=== PATIENT | male | born 1990 | race Caucasian/White ===

== ENCOUNTER 2018-11-08 17:59 | Observation (INO) | payer OTHER ==
[2018-11-08] MEDS ORDERED: 0.9 % SODIUM CHLORIDE 1,000 ML IV ONE ×3 (18:16→19:28)
[2018-11-08 18:50] LABS: BASOPHILS % 0.5 % (0.0-1.5); NEUTROPHILS # 8.4 # k/uL (1.4-7.7)
[2018-11-08 19:09] LABS: eGFR (Non-African) > 60
[2018-11-08] MEDS ORDERED: POTASSIUM CHLORIDE 20 MEQ TABLET.ER PO ONE (19:20)
[2018-11-08] MEDS ORDERED: POTASSIUM CHLORIDE 20 MEQ/NS 1,000 ML IV SCH (20:00)
[2018-11-08 20:37] VITALS: BMI 26.6
[2018-11-08] MEDS ORDERED: POTASSIUM CHLORIDE 20 MEQ/NS 1,000 ML IV ONE (20:54)
--- NOTE | 2018-11-08 21:31 | History and Physical Report ---
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 Has been outside training in the heat. Has been trying to drink a lot of fluids. Yesterday was stenuous, nonstop for 12-14 hours. This evening while travel started to have some muscle aches and cramps, started to have some tremors to his hand, felt like his skin was crawling. Urine has been yellow color, no blood noted. Patient states that he was not able to keep up with the fluids and sweating yesterday. - Past Surgical History Past Surgical History: Other (ORIF of of right ankle fracture) - Past Family History Mother Family History: Other (good health) Father Family History: Other (good health) - Past Social History Smoke: No Alcohol: Rare Drugs: None Lives: Alone - Health Maintenance Health Maintenance: Tetanus Influenza Vaccine: Current for this Influenza Season Pneumonia Vaccine: No Resuscitation Status: Resusciation Status Resuscitation Status Full Code - Unable to Obtain History Unable to Obtain: Yes Review of Systems - Review of Systems Constitutional: Chills, Weakness. negative: Fever Eyes: negative: pain, vision change ENT: negative: Ear Pain, Ear Discharge, Nose Pain, Nose Discharge, Nose Conges tion, Mouth Pain, Throat Swelling Respiratory: negative: Cough, Dry, Shortness of Breath, Hemoptysis, SOB with Excertion, Pleuritic Pain, Sputum, Wheezing Cardiovascular: Palpitations. negative: Chest Pain, Orthopnea, Paroxysmal Noc. Dyspnea, Edema, Light Headedness Gastrointestinal: negative: Nausea, Vomiting, Abdominal Pain, Diarrhea, Constipation, Melena, Hematochezia Genitourinary: negative: Dysuria, Frequency, Incontinence, Hematuria Musculoskeletal: Arm Pain, Back Pain, Hand Pain, Leg Pain. negative: Neck Pain, Shoulder Pain Skin: negative: Rash Neurological: Weakness. negative: Numbness, Incoordination, Change in Speech, Confusion, Seizures - Medications/Allergies Allergies/Adverse Reactions: Allergies Allergy/AdvReac Type Severity Reaction Status Date / Time No Known Allergies Allergy Verified 11/08/18 18:56 Home Medications: Home Medications NK 11/08/18 Current Inpatient Medications: Current Inpatient Medications Potassium Chloride/Sodium Chloride (Kcl 20 Meq/Ns 1000 Ml) 1,000 mls @ 250 mls/hr IV Q8H [facility] Last Admin: 11/08/18 21:18 Dose: 250 mls/hr Exam - Exam Vital Signs: Vital Signs (72 hours) 11/08/18 11/08/18 11/08/18 18:00 18:16 18:17 Temperature 37.2 F L 97.6 F 97.6 F Pulse Rate [ 61 72 100 H Pulse ox] Respiratory 16 18 19 Rate Blood Pressure 93/46 128/82 114/78 [Left Arm] O2 Sat by Pulse 99 98 98 Oximetry 11/08/18 11/08/18 19:39 19:54 Temperature 98.4 F Pulse Rate [ 69 72 Pulse ox] Respiratory 20 18 Rate Blood Pressure 145/98 128/82 [Left Arm] O2 Sat by Pulse 100 98 Oximetry General: Alert, Oriented to Person, Oriented to Place, Oriented to Time, Cooperative HEENT: Atraumatic, PERRLA, EOMI, Mouth Mucous membr. moist/[place], Nose Mucous membr. moist/[place] Neck: Normal Range of Motion Carotids: WNL Thyroid: WNL Lungs: Clear to auscultation, Normal air movement, Speaks full Sentences Cardiovascular: Regular rate, Normal S1, Normal S2, No murmurs Abdomen: Normal bowel sounds, Soft, No tenderness, No hepatospenomegaly, No masses Integumentary: Normal, [place], Warm, Dry Extremities: No clubbing, No cyanosis, No edema, Normal pulses, No tenderness/swelling Neurological: Normal gait, Normal speech, Strength Equal Bilat, Normal tone, Sensation intact, Cranial nerves 3-12 NL, Reflexes 2+ Psych/Mental Status: Mental status NL, Mood NL, Appropriate Affect, Intact Judgment - Laboratory Results Laboratory Results: Laboratory Results 11/08/18 11/08/18 11/08/18 18:16 18:16 18:16 WBC 11.30 RBC 4.34 Hgb 14.6 Hct 41.7 MCV 96.0 MCH 33.5 MCHC 34.9 RDW Pending Plt Count 237 Neut % (Auto) 73.6 Lymph % (Auto) 19.5 [place] % (Auto) 4.5 Eos % (Auto) 1.9 Baso % (Auto) 0.5 Neut # (Auto) 8.4 H Lymph # (Auto) 2.2 [place] # (Auto) 0.5 Eos # (Auto) 0.2 Baso # (Auto) 0.1 Sodium 142 Potassium 3.2 L Chloride 108 H Carbon Dioxide 23 BUN 18 Creatinine 1.39 H Estimated Creat Clear 90 Est GFR ( Amer) > 60 Est GFR (Non-Af Amer) > 60 Glucose 108 H Calcium 9.5 Total Bilirubin 1.7 H AST 84 H ALT 49 Alkaline Phosphatase 63 Creatine Kinase 2494 H CK-MB (CK-2) 4.2 Troponin I < 0.012 L Total Protein 7.4 Albumin 4.6 Assessment/Plan - Assessment/Plan (1) Exertional rhabdomyolysis Status: Acute Current Visit: Yes Assessment: Monitor renal function, IV fluids. (2) Dehydration Status: Acute Current Visit: Yes Assessment: IV fluids and will recheck labs in AM (3) Hypokalemia Status: Acute Current Visit: Yes Assessment: supplemental potassium VTE Assessment - RISK FACTOR SCORE VTE RISK FACTOR SCORES: OTHER (no risk factors) - RISK VTE LOW RISK: SCORE OF 1 OR LESS (RISK PROXIMAL DVT 0.4%) NO PROPHYLAXIS NEEDED
[2018-11-08] MEDS ORDERED: 0.9 % SODIUM CHLORIDE 1,000 ML IV SCH (22:45)
--- NOTE | 2018-11-08 23:15 | ED Physician Documentation ---
General Adult - HISTORIAN Historian: patient - HPI Stated Complaint: Dog Bite Chief Complaint: General Adult Further Comments: yes (28 year old male patient driving from [place] in [place]; presents with muscle weakness, cramping and not feeling well. Patient has been ungoing [employer] training since October 24. Driving to [place] when he became to feel worse tonight, reports symptoms started last night and have become more severe.) - ROS CONST: no problems EYES/ENT: none CVS/RESP: none GI/: none MS/SKIN/LYMPH: none NEURO/PSYCH: denies: headache, fainting, dizziness, tingling, numbness, difficulty walking, difficulty with speech, anxiety, depression, other - PAST HX Past History: none Other History: none Surgeries/Procedures: none Immunizations: UTD Allergies/Adverse Reactions: Allergies Allergy/AdvReac Type Severity Reaction Status Date / Time No Known Allergies Allergy Verified 11/08/18 18:56 Home Medications: Ambulatory Orders Medication Instructions Recorded NK 11/08/18 - SOCIAL HX Smoking History: non-smoker - FAMILY HX Family History: No - VITAL SIGNS Vital Signs: Vital Signs Temp Pulse Resp BP Pulse Ox 98.3 F 49 L 20 146/81 100 11/08/18 21:52 11/08/18 21:52 11/08/18 21:52 11/08/18 21:52 11/08/18 21:52 - REVIEWED ASSESSMENTS Nursing Assessment Reviewed: Yes Vitals Reviewed: Yes Progress - Progress Progress: Reviewed lab findings with patient, recommend admission for IV hydration and lab follow up. Patient agrees with admission at [place]. Call to Dr Bruno - will accept patient for admission. 3L NS started in ER; KCL replacement. - EKG/XRAY/CT EKG: rhythm (No acute changes, SB) ED Results Lab/Radiology - Lab Results Lab Results: Lab Results 11/08/18 11/08/18 11/08/18 18:16 18:16 18:16 WBC 11.30 K/ul K/ul (4.00-12.00) RBC 4.34 M/ul M/ul (3.90-5.20) Hgb 14.6 g/dL g/dL (12.0-18.0) Hct 41.7 % % (37.0-53.0) MCV 96.0 fl fl (80.0-100.0) MCH 33.5 pg pg (28.0-34.0) MCHC 34.9 g/dL g/dL (30.0-36.0) RDW Pending Plt Count 237 K/mm3 K/mm3 (130-400) Neut % (Auto) 73.6 % % (39.0-79.0) Lymph % (Auto) 19.5 % % (16.0-50.0) [place] % (Auto) 4.5 % % (0.0-11.0) Eos % (Auto) 1.9 % % (0.0-6.8) Baso % (Auto) 0.5 % % (0.0-1.5) Neut # (Auto) 8.4 # k/uL H # k/uL (1.4-7.7) Lymph # (Auto) 2.2 # k/uL # k/uL (0.6-4.0) [place] # (Auto) 0.5 # k/uL # k/uL (0.0-0.9) Eos # (Auto) 0.2 # k/uL # k/uL (0.0-0.6) Baso # (Auto) 0.1 # k/uL # k/uL (0.0-0.5) Sodium 142 mmol/L mmol/L (137-145) Potassium 3.2 mmol/L L mmol/L (3.5-5.1) Chloride 108 mmol/L H mmol/L (98-107) Carbon Dioxide 23 mmol/L mmol/L (22-30) BUN 18 mg/dL mg/dL (9-20) Creatinine 1.39 mg/dL H mg/dL (0.66-1.25) Estimated Creat Clear 90 Est GFR ( Amer) > 60 (60 - ) Est GFR (Non-Af Amer) > 60 (60 - ) Glucose 108 mg/dL H mg/dL (74-106) Calcium 9.5 mg/dL mg/dL (8.4-10.2) Total Bilirubin 1.7 mg/dL H mg/dL (0.2-1.3) AST 84 U/L H U/L (15-46) ALT 49 U/L U/L (13-69) Alkaline Phosphatase 63 U/L U/L (38-126) Creatine Kinase 2494 U/L H U/L (55-170) CK-MB (CK-2) 4.2 ng/mL ng/mL (0.0-5.6) Troponin I < 0.012 ng/mL L ng/mL (0.012-0.034) Total Protein 7.4 g/dL g/dL (6.3-8.2) Albumin 4.6 g/dL g/dL (3.5-5.0) - Orders Orders: ED Orders Category Date Time Status Continuous EKG monitoring Q30M Care 11/08/18 18:16 Active Continuous Pulse Oximetry Q30M Care 11/08/18 18:[address] IV Lock 1T Care 11/08/18 18:17 Active CBC/PLATELET/DIFF Stat Lab 11/08/18 18:16 Results CKMB Stat Lab 11/08/18 18:16 Completed CMP Stat Lab 11/08/18 18:16 Completed CREATINE KINASE Stat Lab 11/08/18 18:16 Completed TROPONIN I Stat Lab 11/08/18 18:16 Completed UA W/MICRO IF INDICATED Stat Lab 11/08/18 18:17 Ordered 0.9 % Sodium Chloride [Normal Saline] 1,000 ml Med 11/08/18 18:16 Discontinued IV NOW 0.9 % Sodium Chloride [Normal Saline] 1,000 ml Med 11/08/18 19:13 Discontinued IV NOW 0.9 % Sodium Chloride [Normal Saline] 1,000 ml Med 11/08/18 19:28 Discontinued IV NOW Potassium Chloride 20 Meq/Ns [KCl 20 Meq/Ns 1000 ml] 1, Med 11/08/18 20:00 Discontinued 000 ml IV Q8H Potassium Chloride [Klor-Con M20] Med 11/08/18 19:20 Discontinued 20 meq PO NOW ONE EKG WITH COMPARISON Stat Ther 11/08/18 18:16 Ordered General Adult Physical Exam - PHYSICAL EXAM GENERAL APPEARANCE: mild distress EENT: eye inspection normal, ENT inspection normal, pharynx normal, no signs of dehydration, ELIZABETH, no nystagmus, TM's nml RESPIRATORY: no resp distress, chest non-tender, breath sounds normal CVS: reg rate & rhythm, heart sounds normal, equal pulses, no murmur, no gallop, PMI nml, no JVD, no friction rub, 24 ABDOMEN: soft, no organomegaly, normal bowel sounds, no abdominal bruit, no distension BACK: normal inspection, no CVA tenderness SKIN: normal color, warm/dry, NR, INT, PAL, DR EXTREMITIES: non-tender, normal range of motion, no evidence of injury, no edema, J, [employer] NEURO: oriented X3, CN's nml as tested, motor nml, sensation nml, mood/affect nml Discharge Clincal Impression: Rhabdomyolysis Qualifiers: Rhabdomyolysis type: traumatic Encounter type: initial encounter Qualified Code(s): T79.6XXA - Traumatic ischemia of muscle, initial encounter Condition: Stable Disposition: 09 ADMITTED INPATIENT Decision to Admit: [id number] Decision Time: 19:15
[2018-11-09 05:51] LABS: eGFR (Non-African) > 60
[2018-11-09 06:03] VITALS: BP 144/71
--- NOTE | 2018-11-09 07:17 | Discharge Summary ---
Discharge Summary - Discharge [facility] Admission Date: 11/08/18 (ACUTE) Discharge Date: 11/09/18 Discharge To: Home Condition at Discharge: Stable Home Medications: Ambulatory Orders Medication Instructions Recorded NK 11/08/18 Consultations this Visit: None Procedures this Visit: None Allergies/Adverse Reactions: Allergies Allergy/AdvReac Type Severity Reaction Status Date / Time No Known Allergies Allergy Verified 11/08/18 18:56 Patient Problems: Current Active Problems Problem Status Onset Dehydration Acute Exertional rhabdomyolysis Acute Hypokalemia Acute Rhabdomyolysis Acute Discharge Summary: Patient was aggressively treated with normal saline fluids. Patient received approximately 2 L of normal saline multiple symptoms resolved. Patient has sequential syndicates with did show decreasing levels. Patient admission CPK was 2494. Discharge CPK was 1070. Admission creatinine was 1.39. Discharge creatinine was 1.05. BUN with 13 on dismissal. Patient did have some hypokalemia. Admission potassium was 3.2. Patient was given some supplemental potassium. Discharge potassium was 4.0.Patient BUN and creatinine did improve during his course of hospitalization. At the time of dismissal patient was doing well and it was felt with the current in his labs he can be safely discharged home and managed on an outpatient basis. - Final Diagnosis (1) Exertional rhabdomyolysis Problems: resolving (2) Dehydration Problems: imporved (3) Hypokalemia Problems: resolved
[2018-11-10 16:48] LABS: APPEARANCE,URINE CLEAR (CLEAR); COLOR,URINE YELLOW (YELLOW); OCCULT BLOOD,URINE NEGATIVE (NEGATIVE); PH URINE 7.5 (5.0 - 8.0); UROBILINOGEN URINE 0.2 Eu (0.2-1.0)
== END 2018-11-09 08:58 | disposition home or self-care (01) ==
LOC: ED 17:59 → SOUTH 19:35
PROVIDERS: ADMIT Family Medicine; ATTEND Family Medicine
DX: T79.6XXA Traumatic ischemia of muscle, initial encounter (principal)
CPT/HCPCS: 36415; 80053; 81002; 82550; 82553; 84484; 85025; 99218; A9270; G0378; J3480; J7030; S1016